=== PATIENT | female | born 1965 | race Caucasian/White ===

== ENCOUNTER → 2019-03-12 | Outpatient (CLI) | payer OTHER ==
[~2019-03-12] VITALS: Ht 170.2 cm; Wt 90.7 kg
[~2019-03-12] MED LIST: EMGALITY120 MG/1 M SUBQ; SUMATRIPTAN SU100 MG PO
--- NOTE | 2019-03-15 12:11 | PATH ---
[facility] [address] [place] [address] PATHOLOGY RPT PROCEDURE Name: KYUNG MONGE Room #: REG DEBRA Brink.#: [id number] Admission: 03/12/19 Date of : 65 Discharge: Report #: [id number] Path Case #: [id number] [facility] Accession Number: [id number] . 01 Material submitted: . cecum - POLYP AT CECUM . 01 Clinical history: . Preop DX: Hx of polyps Postop DX: Colon polyp . 02 Diagnosis: Colonic mucosa "polyp at cecum": - Fragments of tubular adenoma. - There is no evidence of high-grade dysplasia or malignancy. (SHA:pit; 03/15/2019) QTP 03/15/2019 1031 Local . 02 Electronically signed: . Antwan Mabry MD, Pathologist NPI- [id number] . 01 Gross description: . Received in formalin labeled "Joseph, Kyung, polyp at cecum," are two segments of elena-brown soft tissue measuring 0.4 x 0.3 x 0.2 cm and 0.6 x 0.3 x 0.3 cm in greatest dimensions admixed with multiple fragments of pale elena possible vegetative material. The specimen is submitted entirely in cassette A1. (DAC; 03/12/2019) XDC/XDC 03/12/2019 1832 Local . 02 Pathologist provided ICD-10: D12.0 . 02 CPT . 528049 Specimen Comment: A courtesy copy of this report has been sent to [phone], [phone] Specimen Comment: [phone] Specimen Comment: Report sent to / DR ALDRIDGE Performed at: [address] [id number] MD Miguel Clemente MD Phone: [phone] Performed at: [address] [id number] [address] [address] PATHOLOGY RPT PROCEDURE Name: KYUNG MONGE JAN Room #: REG DEBRA Brink.#: [id number] Admission: 03/12/19 Date of : 65 Discharge: Report #: [id number] Path Case #: [id number] MD Natividad Nix MD Phone: [phone]
--- NOTE | 2019-03-15 17:09 | P ---
[facility] [place] [address] PROCEDURE REPORT Name: BRIONNA MONGE Room #: REG DEBRA Brink.#: [id number] Admission: 03/12/19 Attend Phys: Greg Melissa MD Discharge: Date of : 65 Report #: [id number] THIS REPORT FOR: //name// CC: Greg Nicole MD BRIEF HISTORY: The patient is a 53-year-old woman with a history of colon polyps. Three years ago, she had 3 adenomas removed. PREOPERATIVE DIAGNOSIS: History of colon polyps. POSTOPERATIVE DIAGNOSIS: Flat polyp, cecum. MEDICATIONS: Deep sedation with propofol per Anesthesia. SPECIMEN: Cecal polyp. ESTIMATED BLOOD LOSS: 3 mL. PROCEDURE: Colonoscopy to cecum and terminal ileum with snare polypectomy. FINDINGS: Prior to propofol sedation, procedure of colonoscopy discussed with the patient as well as potential risks and its complications. She indicates she understands and desires to proceed. DESCRIPTION OF PROCEDURE: With the patient in left lateral decubitus position, digital examination was completed, which revealed no abnormalities. Subsequently, the Olympus video colonoscope was introduced in the rectum, advanced under direct vision to the cecum. Done with minimal difficulty. Cecum was identified by the ileocecal valve and the appendiceal orifice. I was able to visualize the distal segment of terminal ileum, which was inspected and noted to be unremarkable. At that point, the scope was slowly withdrawn and careful circumferential views obtained including retroflexing the scope in the ascending colon. Upon slow withdrawal of the scope, the prep was excellent. The mucosa was within normal limits, normal vascular pattern, normal light reflex. Within the cecum, there was about a 6 mm flat polyp, which was removed by cold snare polypectomy. The scope was further withdrawn and no additional neoplastic lesions were seen. Remainder of the examination was unremarkable. The scope was withdrawn in the rectum and no abnormalities were seen. The scope was withdrawn. The patient tolerated the procedure well. CONDITION OF THE PATIENT UPON DISCHARGE: Following procedure, the patient drowsy, aroused, conversant and will be discharged home when fully ambulatory. INSTRUCTIONS TO THE PATIENT AND FAMILY AT THE TIME OF DISCHARGE: The patient with findings of one polyp. We will follow up on the path and make further [facility] [address] [place] [address] PROCEDURE REPORT Name: BRIONNA MONGE JAN Room #: REG [facility].#: [id number] Admission: 03/12/19 Attend Phys: Greg Melissa MD Discharge: Date of : 65 Report #: [id number] recommendations. We will have her return in 5 years due to her history of polyps and finding of additional polyps today. Last colonoscopy was about 3 years ago. Withdrawal time from the cecum was 13 minutes 17 seconds. <ELECTRONICALLY SIGNED> By: Greg Melissa MD 03/15/19 1709 1057 [id number] Greg Melissa MD /nt
== END | disposition home or self-care (01) ==
LOC: GI 08:34
DX: Z12.11 Encounter for screening for malignant neoplasm of colon (principal); Z86.010 Personal history of colon polyps; D12.0 Benign neoplasm of cecum; I10 Essential (primary) hypertension; G43.909 Migraine, unspecified, not intractable, without status migrainosus; Z98.890 Other specified postprocedural states; Z79.899 Other long term (current) drug therapy
CPT/HCPCS: 62110; 62900